=== PATIENT | male | born 1985 | race Caucasian/White ===

== ENCOUNTER → 2018-04-06 | Outpatient (CLI) | payer BC ==
[~2018-04-06] MED LIST: IBUP-56 PO
[2018-04-06 12:52] LABS: PLATELET COUNT, AUTOMATED 277 K/uL (150-450)
[2018-04-06 13:01] LABS: LDL CHOLESTEROL 93 mg/dl
== END ==
LOC: LAB 12:35
PROVIDERS: ATTEND Internal Medicine
DX: R35.0 Frequency of micturition (principal); M25.512 Pain in left shoulder; M25.539 Pain in unspecified wrist
CPT/HCPCS: 36415; 81001; 82040; 82247; 82310; 82374; 82435; 82465; 82565; 82947; 83718; 84075; 84132; 84155; 84295; 84443; 84450; 84460; 84478; 84520; 85025

== ENCOUNTER → 2018-08-28 | Outpatient (REF) | LOC: AUD 10:30 | PROVIDERS: ATTEND Internal Medicine | DX: Z01.12 Encounter for hearing conservation and treatment (principal) | CPT/HCPCS: 92552 ==

== ENCOUNTER → 2018-09-28 | Outpatient (CLI) | payer BC | LOC: LAB 08:22 | PROVIDERS: ATTEND Internal Medicine | DX: R35.0 Frequency of micturition (principal); R94.5 Abnormal results of liver function studies | CPT/HCPCS: 36415; 80074; 81001; 82040; 82247; 82310; 82374; 82435; 82565; 82728; 82947; 83540; 83550; 84075; 84132; 84153; 84155; 84295; 84450; 84460; 84520; 86038 ==

== ENCOUNTER 2018-09-29 09:47 | Outpatient (RCR) | payer BC ==
--- NOTE | 2018-10-03 09:39 | RADIOLOGY IMAGING REPORT ---
FACILITY: [facility] PATIENT NAME: Elder Mahajan : 1985 MR: [id number] V: [id number] EXAM DATE: ORDERING PHYSICIAN: RAÚL MAYA TECHNOLOGIST: Location: [facility] - [place] Patient: Elder Mahajan : 1985 Visit/Account:[id number] Date of Sevice: 10/03/2018 ABDOMEN COMPLETE HISTORY: Increased LFTs. COMPARISON: None. FINDINGS: Liver: Negative. Normal in size, contour, and echogenicity. No visualized biliary ductal dilatation. Gallbladder: Unremarkable; no stones or sludge. Common duct: Normal, 3 mm diameter. Pancreas: Partially obscured by bowel, visualized aspects unremarkable. Spleen: Negative. Kidneys: Negative. Upper abdominal aorta and IVC: Patent. Ascites: None visualized. IMPRESSION: Negative exam. No findings to explain the patient's clinical symptoms. Report Dictated By: Rogelio Can MD at 10/03/2018 9:34 AM Report E-Signed By: Rogelio Can MD at 10/03/2018 9:35 AM WSN:[id number]
== END 2018-10-03 18:00 | disposition home or self-care (01) ==
LOC: US 09:47 → EDSTATUS 09:47 → US 10-03 18:00
PROVIDERS: ATTEND Internal Medicine
DX: R94.5 Abnormal results of liver function studies (principal); R35.0 Frequency of micturition
CPT/HCPCS: 76700